=== PATIENT | female | born 1970 | race Caucasian/White ===

== ENCOUNTER 2017-03-27 14:04 | Emergency (ER) | payer OTHER ==
[2017-03-27 15:07] VITALS: BP 115/66
--- NOTE | 2017-03-27 15:41 | UC ---
Throat Pain/Nasal Jaden HPI - HPI Summary HPI Summary: 46 y/o female presents to the urgent care c/o of fever, nasal congestion, sore throat, productive cough with green phlegm for the past 5 days. Pt states she also has a THOMPSON which is 4/10. Patient denies SOB, chest pain, N/V/D. Pt has been taking ibuprofen to alleviates symptoms. Pt reports Hx of sinusitis. Pt has not other complains. - History of Current Complaint Chief Complaint: UCRespiratory Stated Complaint: FEVER,UPPER RESPIRATORY Time Seen by Provider: 03/27/17 15:29 Hx Obtained From: Patient Hx Last Menstrual Period: 03/25/17 ?: No Onset/Duration: Gradual Onset, Lasting Days, Still Present Severity: Moderate Pain Intensity: 4 Pain Scale Used: 0-10 Numeric Cough: Productive - green phlegm Associated Signs & Symptoms: Positive: Sinus Discomfort, Nasal Discharge - green phlegm, Fever - Epiglottits Risk Factors Epiglottis Risk Factors: Negative - Allergies/Home Medications Allergies/Adverse Reactions: Allergies Allergy/AdvReac Type Severity Reaction Status Date / Time Penicillin G Allergy Severe THROAT Verified 03/27/17 15:07 CLOSES Penicillins Allergy Swelling Verified 03/27/17 15:07 Of Face,Lips,& Throat PMH/Surg Hx/FS Hx/Imm Hx Previously Healthy: Yes - Surgical History Surgical History: Yes Surgery Procedure, Year, and Place: wisdom teeth - Family History Known Family History: Positive: None - Social History Occupation: Employed Full-time Lives: With Family Alcohol Use: Occasionally Substance Use Type: None Smoking Status (MU): Never Smoked Tobacco Review of Systems Constitutional: Fever - at home on and off Skin: Negative Eyes: Negative ENT: Sore Throat, Nasal Discharge, Sinus Congestion - green phlegm Respiratory: Cough - green phlegm Cardiovascular: Negative Gastrointestinal: Negative Genitourinary: Negative Motor: Negative Neurovascular: Negative Musculoskeletal: Negative Neurological: Negative Psychological: Negative All Other Systems Reviewed And Are Negative: Yes Physical Exam Triage Information Reviewed: Yes Appearance: Well-Appearing, No Pain Distress, Well-Nourished, Thin Vital Signs: Initial Vital Signs Temp 98.9 F 03/27/17 15:03 Pulse 88 03/27/17 15:03 Resp 16 03/27/17 15:03 BP 115/66 03/27/17 15:03 Pulse Ox 100 03/27/17 15:03 Vital Signs Reviewed: Yes Eye Exam: Normal Eyes: Positive: Conjunctiva Clear - PERRLA, EOMI, Fundi grossly normal ENT: Positive: Hearing grossly normal, Pharynx normal - with erythema and mild exudate., Nasal congestion - with erythematous and swollen nasal mucosa. and green nasal discharge, TMs normal - B/l with clear b/L ear canals Dental Exam: Normal Neck exam: Normal Neck: Positive: Supple, Nontender, No Lymphadenopathy Respiratory Exam: Normal Respiratory: Positive: Chest non-tender, Lungs clear, Normal breath sounds Cardiovascular Exam: Normal Cardiovascular: Positive: RRR, No Murmur, Pulses Normal Abdominal Exam: Normal Abdomen Description: Positive: Nontender, No Organomegaly, Soft Bowel Sounds: Positive: Present Musculoskeletal Exam: Normal Musculoskeletal: Positive: Strength Intact, ROM Intact, No Edema Neurological Exam: Normal Psychological Exam: Normal Skin Exam: Normal Throat Pain/Nasal Course/Dx - Course Course Of Treatment: 46 y/o female presents to the urgent care c/o of fever, nasal congestion, sore throat, productive cough with green phlegm for the past 5 days. Hx obtained. PE abnormal finding:ENT: Positive: Hearing grossly normal , Pharynx normal - with erythema and mild exudate., Nasal congestion - with erythematous and swollen nasal mucosa. and green nasal discharge, TMs normal - B /l with clear b/L ear canals. Rapid strep ordered. Result:negative. Pt with Hx of Sinusitis. She was explained that sinusitis most common etilogy is viral , she requested a Rx of antibiotics since she ends up taking the antibiotics. Pt Allergic to amoxicillin. Pt Rx Z-abhijit and flonase to alleviate symptoms. Increase fluid intake and rest. Pt understood and agree. - Differential Dx/Diagnosis Differential Diagnosis/HQI/PQRI: Influenza, Otitis Media, Pharyngitis, Sinusitis , Tonsillitis, URI Provider Diagnoses: Sinusitis. Discharge - Discharge Plan Condition: Stable Disposition: HOME Prescriptions: Azithromyxin ABHIJIT (NF) [Z-Abhijit (Zithromax) 250 mg tabs #6] 2 tab PO .TODAY, THEN 1 DAILY #6 tab Fluticasone NASAL SPRAY 50MCG* [Flonase NASAL SPRAY 50MCG*] 2 spray BOTH NARES DAILY #1 btl Patient Education Materials: Sinusitis (ED) Referrals: Chapo Ladd MD [Primary Care Provider] - If Needed Additional Instructions: Please take medications as instructed and finish the full course of treatment to avoid recurrent infection. Please increase fluid intake and use the flonase to alleviate symptoms. If you do not improve or if symptoms worsen after the course of antibiotics, you should either follow up with your PCP or return to the urgent care for further evaluation and treatment.
== END 2017-03-27 16:01 | disposition home or self-care (01) ==
LOC: UCCORT 14:04
DX: J32.9 Chronic sinusitis, unspecified (principal)
CPT/HCPCS: 87651; 99212; G0463

== ENCOUNTER 2017-11-09 15:51 | Emergency (ER) | payer OTHER ==
[2017-11-09 16:51] VITALS: BP 105/76
--- NOTE | 2017-11-09 17:56 | UC ---
FLU HPI - HPI Summary HPI Summary: Pt c/o sudden onset fever, chills, cough,SOB, generalized malaise X 4 days. - History of Current Complaint Chief Complaint: UCRespiratory Stated Complaint: UPPER RESPIRATORY Time Seen by Provider: 11/09/17 17:47 Hx Obtained From: Patient Hx Last Menstrual Period: 03/25/17 ?: No Onset/Duration: Sudden Onset Severity Currently: Moderate Severity Initially: Moderate Pain Intensity: 8 Associated Signs & Symptoms: Positive: Fever, Myalgia, Cough Related Hx: Possible Flu/Infectious Exposure - Allergy/Home Medications Allergies/Adverse Reactions: Allergies Allergy/AdvReac Type Severity Reaction Status Date / Time pcn Allergy Swelling Uncoded 11/09/17 16:51 Of Face,Lips,& Throat PMH/Surg Hx/FS Hx/Imm Hx Previously Healthy: Yes - Surgical History Surgical History: Yes Surgery Procedure, Year, and Place: wisdom teeth - Family History Known Family History: Positive: Cardiac Disease - Social History Occupation: Employed Full-time Lives: With Family Alcohol Use: Occasionally Substance Use Type: None Smoking Status (MU): Never Smoked Tobacco Have You Smoked in the Last Year: No Review of Systems Constitutional: Fever, Chills, Fatigue Skin: Negative Eyes: Negative ENT: Sore Throat Respiratory: Shortness Of Breath, Cough Cardiovascular: Negative Gastrointestinal: Negative Genitourinary: Negative Motor: Negative Neurovascular: Negative Musculoskeletal: Myalgia Neurological: Headache Psychological: Negative Is Patient Immunocompromised?: No All Other Systems Reviewed And Are Negative: Yes Physical Exam Triage Information Reviewed: Yes Appearance: Ill-Appearing Vital Signs: Initial Vital Signs Temp 100.0 F 11/09/17 16:47 Pulse 88 11/09/17 16:47 Resp 18 11/09/17 16:47 BP 105/76 11/09/17 16:47 Pulse Ox 99 11/09/17 16:47 Vital Signs Reviewed: Yes Eye Exam: Normal ENT Exam: Other ENT: Positive: Nasal congestion Dental Exam: Normal Neck exam: Normal Respiratory Exam: Other Respiratory: Positive: Decreased breath sounds Cardiovascular Exam: Normal Musculoskeletal Exam: Normal Neurological Exam: Normal Psychological Exam: Normal Skin Exam: Normal Flu Course/Dx - Differential Dx/Diagnosis Differential Diagnosis/HQI/PQRI: Bronchitis, Influenza, Pneumonia Provider Diagnoses: Influenza B. pneumonia Discharge - Discharge Plan Condition: Stable Disposition: HOME Prescriptions: Azithromycin TAB* [Zithromax TAB (Z-BREANA) 250 mg #6 tabs] 2 tab PO .TODAY, THEN 1 DAILY #1 breana Benzonatate CAP* [Tessalon 100 MG CAP*] 100 mg PO Q8H PRN #21 cap PRN Reason: Cough methylPREDNISolone TAB* [Medrol TAB*] 4 - 8 mg PO .SEE BREANA #1 breana Oseltamivir CAP* [Tamiflu CAP*] 75 mg PO Q12H #10 cap Patient Education Materials: Influenza (ED), Pneumonia (ED) Forms: *Work Release Referrals: Chapo Ladd MD [Primary Care Provider] - If Needed
[2017-11-09] MEDS ORDERED: Benzonatate CAP* 100 MG PO ONE (18:00)
[2017-11-09] MEDS ORDERED: Oseltamivir CAP* 75 MG CAP PO ONE (18:00)
== END 2017-11-09 18:14 | disposition home or self-care (01) ==
LOC: UCCORT 15:51
DX: J10.1 Influenza due to other identified influenza virus with other respiratory manifestations (principal); J10.01 Influenza due to other identified influenza virus with the same other identified influenza virus pneumonia
CPT/HCPCS: 87502; 99212; A9270-GY; G0463